=== PATIENT | female | born 1960 | race Caucasian/White ===

== ENCOUNTER → 2018-03-29 08:14 | Outpatient (CLI) | payer MEDICAID, SELFPAY ==
[2018-03-29 09:06] LABS: Absolute Lymphocyte Count 2.84 X10^3/ul (0.83-4.51); Absolute Neutrophil Count 2.2 X10^3/uL (2.0-7.7); Basophil# 0.03 X10^3/uL; Basophil% 0.5 % (0-1); Eosinophil# 0.11 X10^3/uL; Hematocrit 40.9 % (37-47); Hemoglobin 13.3 g/dl (12.0-15.0); Lymphocyte # 2.84 X10^3/ul (4.0); Lymphocyte % 50.5 % (19-41); Mean Corp Hgb Conc 32.5 g/gl (32-36); Mean Corpuscular Hgb 29.1 pg (27.0-32.0); Mean Corpuscular Volume 89.5 fL (81-99); Mean Platelet Vol. 10.2 fl (6.2-12.0); Monocyte# 0.45 X10^3/uL; Neutrophil # 2.17 X10^3/uL (2.7-7.7); Neutrophil % 38.6 % (47-70); Platelet Count 233 K/mm3 (150-450); RBC Distribution Width CV 12.8 % (11.6-14.6); RBC Distribution Width SD 41.6 fl (35.1-43.9); Red Blood Count 4.57 M/mm3 (4.2-5.4); White Blood Count 5.6 K/mm3 (4.4-11.0)
[2018-03-29 09:11] LABS: POSITIVE COUNT NO; POSITIVE DIFFERENTIAL NO; POSITIVE MORPHOLOGY NO
[2018-03-29 09:36] LABS: ALB/GLOB Ratio 0.8 RATIO (0.9-2.4); AST(SGOT) 42 U/L (15-37); Alanine Aminotransfer ALT/SGPT 79 U/L (13-56); Albumin, Serum 3.3 g/dL (3.2-5.0); Alkaline Phosphatase 101 U/L (45-117); Anion Gap 7 (5-15); BUN 18 mg/dL (7-18); BUN/Creat Ratio 21.9 RATIO (10-20); Calcium,Total 9.2 mg/dL (8.5-10.1); Chloride 95 mmol/L (98-107); Cholesterol 248 mg/dL (200); Creatinine, Serum 0.82 mg/dL (0.55-1.02); EST Glomerular Filtration Rate 76 mL/min (>60); Est Glom Filt Rate - Afr Amer 92 mL/min (>60); Glucose 73 mg/dL (74-106); High Density Lipoprotein 92 mg/dL; Potassium 4.5 mmol/L (3.5-5.1); Protein, Total 7.3 g/dL (6.4-8.2); Sodium Level 132 mmol/L (136-145); T4 Free Direct 0.71 ng/dL (0.76-1.46); Thyroid Stim Hormone (TSH) 6.52 uIU/mL (0.358-3.74); Triglycerides 150 mg/dL; Very Low Density Lipoprotein 30 mg/dL (5-40)
[2018-03-29 10:16] LABS: HIV - WCH Non-Reactive (Nonreactive)
[2018-03-31 07:07] LABS: HEPATITIS B SURFACE AG Negative (Negative); Hepatitis A AB, Total Negative (Negative); Hepatitis A IgM Antibody Negative (Negative); Hepatitis B Core AB IgM Negative (Negative); Hepatitis B Core Ab Total Positive (Negative); Hepatitis C Ab >11.0 s/co ratio (0.0-0.9)
[2018-04-03 11:52] LABS: Hep B Surface Antibodies Reactive (.)
== END ==
PROVIDERS: Referring Provider Nurse Practitioner Family; Visit Provider Nurse Practitioner Family
DX: E78.5 Hyperlipidemia, unspecified (principal); E03.9 Hypothyroidism, unspecified; B19.20 Unspecified viral hepatitis C without hepatic coma; F19.10 Other psychoactive substance abuse, uncomplicated
CPT/HCPCS: 36415; 80053; 80061; 84439; 84443; 85025; 86703; 86704; 86705; 86706; 86708; 86709; 86803; 87340

== ENCOUNTER 2018-06-07 19:21 | Emergency (ER) | payer MEDICAID, SELFPAY ==
[2018-06-07 19:22] VITALS: BP 132/98; PULSE 83; RESP 20; TEMP 37; O2SAT 99; BMI 21.2
--- NOTE | 2018-06-07 19:39 | ED.VISSUMM ---
- ER Visit Summary Date of Service: 06/07/18 Chief Complaint: Patient arrived by squad after respiratory arrest History of Present Illness: The patient is a 57 F who was at 180 counseling session for opiate use. She states she was not having a good day. She snorted fentanyl. She was found unresponsive. She awoke after 1 mg of Narcan. She denies fever, chills night sweats. She denies IV drug use. She denies ocular, visual auditory symptoms. She denies chest pain palpitations or rapid heartbeat. She denies shortness of breath or cough. She denies nausea vomiting or abdominal pain. She denies skin rash or lesions. Physical Examination: Vital signs noted and blood pressure is slightly elevated 132/98. Head is atraumatic normocephalic. Pupils are equal round reactive. Extraocular muscles are intact. TMs are pearly white with landmarks noted. Nares patent with no drainage. Posterior pharynx without erythema or exudate. Uvula is midline. There is no dysphonia or dysphasia. Trachea is midline. There is no stridor with auscultation of the neck. Heart is regular without murmur, gallop or rub. S1 and S2 are normal. Lungs are clear to auscultation with good movement of air bilaterally. Abdomen soft nontender. Neuro exam is nonfocal. No fresh needle jonas noted. Test Results: None Emergency Department Course and Treatment: Since patient received Narcan greater than 30 minutes ago and she is alert awake and oriented she is safe for discharge since the half-life of Narcan is 30 minutes and the half-life of fentanyl is less. One would expect her to have depressed level of conscious if overdose is more significant. Treatment Plan: Patient was observed and since half-life of Narcan is only 30 minutes and she still awake alert and oriented she is safe for discharge Disposition: Discharge to home Impression: Respiratory arrest secondary to fentanyl use This note was generated with [employer] dictation software. It may contain incorrect words, spelling, and punctuation that were not noted in review of the chart prior to signing ED Disposition - Plan for ED Patient: Disposition: Home or Assisted Living Chief Complaint: Overdose Instructions: ED Overdose Opiate Referrals: Ho Garg MD [Primary Care Provider] - As Needed
[2018-06-07 19:50] VITALS: BP 132/84; PULSE 77; RESP 18; O2SAT 98
== END 2018-06-07 20:00 | disposition home or self-care (01) ==
LOC: ED 19:47
PROVIDERS: Emergency Provider Emergency Medicine; Family Provider Internal Medicine; PCP Internal Medicine
DX: R09.2 Respiratory arrest (principal); F41.9 Anxiety disorder, unspecified; Z72.0 Tobacco use; F19.90 Other psychoactive substance use, unspecified, uncomplicated
CPT/HCPCS: 99284

== ENCOUNTER 2019-07-23 15:43 | Emergency (ER) | payer MEDICAID, SELFPAY ==
[2019-07-23 15:44] VITALS: BP 150/94; PULSE 80; RESP 18; TEMP 36.1; O2SAT 100; BMI 21.0
--- NOTE | 2019-07-23 16:01 | ED.VIS.FEGU ---
History of Present Illness Chief Complaint: Female C/O Informant: Patient - Vaginal Discharge Onset: Days Quality: - - brown Severity: Heavy Narrative: Patient is a 58-year-old female who denies any past medical history presenting with abnormal vaginal discharge for the past week. She states it is dripping out of her and brown-white. She denies any associated itch or odor. She denies any urinary symptoms. She has any vaginal bleeding. She denies any bowel symptoms. She denies any fever, nausea or vomiting. She notes about 3 weeks ago she had both anal and vaginal intercourse. She is concerned that her partner did not clean off his penis after the anal and before the vaginal intercourse. She does not have an FRUIT SPRAYER to follow-up with. Patient was also told at some point that eating raw noodles (uncooked Pasta) can cause tapeworms. Patient states she is always eaten raw noodles and is concerned that that might be what is going on. She denies any history of tapeworms. She denies any other complaints or concerns at this time. Past Medical History - Allergies and Home Meds Allergies/Adverse Reactions: Allergies No Known Allergies Allergy (Unverified 04/05/19 14:28) Primary Care Physician: Ho Garg MD [STAFF PHYSICIAN] - Prior records reviewed: Yes Past Medical History: None Surgical History: noncontributory Smoking Status: Current every day smoker Review of Systems General: Denies: Chills, Fever, Sweats Eyes: Denies: Visual changes - bilaterally, Diplopia ENT: Denies: Rhinorrhea, Sore throat Cardiovascular: Denies: Chest pain, Palpitations Respiratory: Denies: Dyspnea, Cough, Dyspnea on exertion Gastrointestinal: Denies: Abdominal pain, Nausea, Vomiting, Diarrhea, Melena, Hematochezia Genitourinary: Reports: - - Abnormal vaginal discharge. Denies: Dysuria, Hematuria, Frequency Musculoskeletal: Denies: Back pain, Extremity Pain Skin: Denies: Rash, Wounds Neurological: Denies: Headache, Weakness, Numbness Physical Exam Vital Signs/Narrative: Vital Signs Temp Pulse Resp BP Pulse Ox 07/23/19 15:44 96.9 F L 80 18 150/94 H 100 Inital Vital Signs reviewed: Yes General: Well nourished, Well developed Head: Normocephalic, Atraumatic Eyes: Perrl, EOMI ENT: Moist mucous membranes, No rhinorrhea Neck: Supple, Nontender Cardiovascular: Regular rate, Regular rhythm, No murmurs Respiratory: No distress, CTA bilaterally, Chest nontender Abdomen: Soft, Nontender, Nondistended, Normal bowel sounds : Speculum exam: Normal external genitalia, No vaginal lesions, No active bleeding, [place] vaginal discharge, Thin vaginal discharge Bimanual exam: No cervical motion tenderness, Nontender uterus, Nontender adnexa, bilat Back: Nontender, Normal Inspection. Negative for: CVA tenderness Extremities: Nontender, No edema Skin: Normal color, No rash Neurological: Alert, Oriented x3, Cranial nerves II-XII grossly intact, Normal Strength, Normal Sensation Psychological: Normal affect Diagnostic/Tx/Re-eval Laboratory Data 07/23/19 16:00 Urine Color Yellow Urine Clarity Sl. Cloudy Urine pH 6.0 Ur Specific [place] 1.010 Urine Protein Negative Urine Glucose (UA) Normal Urine Ketones Negative Urine Occult Blood 10 H Urine Nitrite Negative Urine Bilirubin Negative Urine Urobilinogen Normal Ur Leukocyte Esterase 500 H Urine RBC 5-10 SEEN Urine WBC 10-25 SEEN Ur Squamous Epith Cells 0-5 SEEN Urine Bacteria RARE Urine Mucus 0 SEEN Urine Trichomonas 0-5 SEEN - Medical Decision/Diagnostic Studies Evaluated for abnormal vaginal discharge. Physical exam is consistent with trichomonas. She does not have any cervical motion tenderness and I am not concerned for cervicitis, tubo-ovarian abscess or torsion. Patient does leave before her results come back. She will be called in a course of Flagyl to treat trichomonas. We did attempt to call her however her voicemail was not set up. Urinalysis does show trichomonas as well as 500 leukoesterase and rare bacteria. Leukoesterase is likely from the trichomonas. Urine culture is sent. Gonorrhea and Chlamydia results are still pending. Patient was well-appearing and is a good candidate for outpatient treatment. ED Disposition - Plan for ED Patient: Disposition: Home or Assisted Living Diagnosis: infection, trichomonal Prescriptions: Metronidazole [Flagyl] 500 mg PO BID #14 tab Transmission Status: Pending to [facility], [place], [facility] [place] - [id number] Referrals: Ho Garg MD [STAFF PHYSICIAN] -
[2019-07-23 16:29] LABS: Mucous, Urine 0 SEEN /hpf (<or=2+)
[2019-07-23 16:35] LABS: Color, Urine Yellow (Yellow); Glucose, Dipstick Normal (Normal); Ketone-Dipstick Negative (Negative); Leukocyte Esterase-Dipstick 500 /ul (Negative); Nitrite-Dipstick Negative (Negative); Occult Blood-Urine 10 /ul (Negative); Protein-Dipstick Negative (Negative); Urine Bilirubin Dipstick Negative (Negative); Urine Clarity Sl. Cloudy (Clear); Urine Urobilinogen Normal (Normal)
--- NOTE | 2019-07-23 16:41 | ED.RN ---
positive trich per call from md cathy notified.
[2019-07-23 16:54] LABS: Red Blood Cells-Urine 5-10 SEEN /hpf (0-5); Squamous Epithelial Cells - UA 0-5 SEEN /hpf (5-10); White Blood Cells 10-25 SEEN /hpf (0-5)
[2019-07-23 16:55] LABS: Bacteria RARE /hpf (None Seen); Trichomonas 0-5 SEEN /hpf (None Seen)
[2019-07-23 18:08] LABS: Chlamydia Trachomatis by PCR Negative (Negative); Neisserai gonorrhoeae by PCR Negative (Negative); Probe Check PASS; Sample Adequacy Control PASS; Specimen Processing Control PASS
--- NOTE | 2019-07-23 18:52 | ED.RN ---
Pt left before results returned. Physician aware. Unable to call results to pt. Did not answer and message option not set up.
== END 2019-07-23 17:30 | disposition home or self-care (01) ==
PROVIDERS: Emergency Provider Emergency Medicine
DX: A59.00 Urogenital trichomoniasis, unspecified (principal); F17.200 Nicotine dependence, unspecified, uncomplicated
CPT/HCPCS: 81001; 87086; 87210; 87491; 87591; 99281; 99282

== ENCOUNTER → 2020-01-30 10:51 | Outpatient (CLI) | payer MEDICAID, SELFPAY ==
[2020-01-30 10:42] VITALS: BMI 21.0
[2020-01-30 12:35] LABS: Absolute Lymphocyte Count 2.98 X10^3/uL (0.83-4.51); Absolute Neutrophil Count 2.4 X10^3/uL (2.0-7.7); Basophil# 0.08 X10^3/uL; Basophil% 1.3 % (0-1); Eosinophil# 0.16 X10^3/uL; Eosinophils% 2.6 % (0-5); Hematocrit 42.1 % (37-47); Lymphocyte # 2.98 X10^3/ul (4.0); Lymphocyte % 47.8 % (19-41); Mean Corp Hgb Conc 33.3 g/dL (32-36); Mean Corpuscular Hgb 30.1 pg (27.0-32.0); Mean Corpuscular Volume 90.5 fL (81-99); Monocyte% 9.6 % (0-10); NRBC Flagged by Analyzer 0 % (0-5); Neutrophil # 2.39 X10^3/uL (2.7-7.7); Neutrophil % 38.4 % (47-70); Platelet Count 270 K/mm3 (150-450); RBC Distribution Width CV 12.6 % (11.6-14.6); RBC Distribution Width SD 41.3 fl (35.1-43.9); Red Blood Count 4.65 M/mm3 (4.2-5.4); White Blood Count 6.2 K/mm3 (4.4-11.0)
[2020-01-30 12:53] LABS: ALB/GLOB Ratio 0.9 RATIO (0.9-2.4); AST(SGOT) 46 U/L (15-37); Alanine Aminotransfer ALT/SGPT 81 U/L (13-56); Albumin, Serum 3.7 g/dL (3.2-5.0); Alkaline Phosphatase 106 U/L (45-117); Anion Gap 2 (5-15); BUN 11 mg/dL (7-18); Calcium,Total 9.2 mg/dL (8.5-10.1); Chloride 101 mmol/L (98-107); Cholesterol 226 mg/dL (200); Creatinine, Serum 0.79 mg/dL (0.55-1.02); EST Glomerular Filtration Rate 79 mL/min (>60); Est Glom Filt Rate - Afr Amer 96 mL/min (>60); Globulin 3.9 g/dL (2.2-4.2); Glucose 88 mg/dL (74-106); High Density Lipoprotein 74 mg/dL; Potassium 4.3 mmol/L (3.5-5.1); Protein, Total 7.6 g/dL (6.4-8.2); Sodium Level 133 mmol/L (136-145); T4 Free Direct 0.73 ng/dL (0.76-1.46); Thyroid Stim Hormone (TSH) 7.97 uIU/mL (0.358-3.74); Triglycerides 188 mg/dL; Very Low Density Lipoprotein 38 mg/dL (5-40)
[2020-01-30 14:08] LABS: HIV - WCH Non-Reactive (Nonreactive)
[2020-01-30 14:14] LABS: Hepatitis C Antibody REACTIVE (Nonreactive)
[2020-02-01 03:06] LABS: HCV Quant. RNA PCR 1230000 IU/mL (.)
== END ==
PROVIDERS: PCP Internal Medicine; Referring Provider Nurse Practitioner Family; Visit Provider Nurse Practitioner Family
DX: E03.9 Hypothyroidism, unspecified (principal); E78.5 Hyperlipidemia, unspecified; B19.20 Unspecified viral hepatitis C without hepatic coma; F19.10 Other psychoactive substance abuse, uncomplicated
CPT/HCPCS: 36415; 80053; 80061; 84439; 84443; 85025; 86703; 86803; 87522

== ENCOUNTER → 2020-02-10 14:35 | Outpatient (CLI) | payer MEDICAID, SELFPAY ==
[2020-02-10 14:28] VITALS: BMI 21.9
--- NOTE | 2020-02-10 14:36 | RAD_ITS ---
STUDY: X-RAY - LUMBAR SPINE REASON FOR EXAM: Female, 59 years old. CHRONIC PAIN TECHNIQUE: 4 view(s) of the lumbar spine were obtained. COMPARISON: None FINDINGS: Normal lumbar lordosis. There is a dextroscoliosis of the lumbar spine. There is a normal alignment of the vertebrae. Normal vertebral bodies and endplates. Normal disc space heights. Moderate amount of fecal material is seen in the colon. RAD/L/S Spine Min 4 Views IMPRESSION: Dextroscoliosis. Electronically Signed: Jonah Castillo, at 15:52 EDT , Service support ,
--- NOTE | 2020-02-10 14:36 | RAD_ITS ---
STUDY: X-RAY - RIGHT KNEE REASON FOR EXAM: Female, 59 years old. CHRONIC PAIN TECHNIQUE: 4 view(s) of the knee. COMPARISON: None. FINDINGS: Normal visualized distal femur. Normal visualized proximal tibia and fibula. Normal proximal tibiofibular articulation. Normal medial femorotibial compartment. Normal lateral femorotibial compartment. Normal patellofemoral articulation. The soft tissue structures are unremarkable. RAD/Knee 4 or More Views IMPRESSION: Normal x-ray examination of the knee. Electronically Signed: Jonah Castillo, at 15:02 EDT , Service support ,
== END ==
PROVIDERS: PCP Internal Medicine; Referring Provider Orthopaedic Surgery; Visit Provider Orthopaedic Surgery
DX: R20.0 Anesthesia of skin (principal); M25.561 Pain in right knee
CPT/HCPCS: 72110; 73564

== ENCOUNTER → 2020-02-28 13:32 | Outpatient (CLI) | payer MEDICAID, SELFPAY ==
[2020-02-28 13:06] VITALS: BMI 21.0
[2020-02-28 14:36] LABS: T4 Free Direct 1.03 ng/dL (0.76-1.46)
== END ==
PROVIDERS: PCP Internal Medicine; Referring Provider Nurse Practitioner Family; Visit Provider Nurse Practitioner Family
DX: E03.9 Hypothyroidism, unspecified (principal)
CPT/HCPCS: 36415; 84439; 84443

== ENCOUNTER → 2020-03-11 09:50 | Outpatient (CLI) | payer MEDICAID, SELFPAY ==
[2020-02-28 13:06] VITALS: BMI 21.0
[2020-03-11 10:10] LABS: Absolute Lymphocyte Count 2.34 X10^3/uL (0.83-4.51); Absolute Neutrophil Count 2.8 X10^3/uL (2.0-7.7); Basophil# 0.05 X10^3/uL; Basophil% 0.9 % (0-1); Eosinophil# 0.14 X10^3/uL; Eosinophils% 2.4 % (0-5); Hematocrit 41.1 % (37-47); Hemoglobin 13.6 g/dL (12.0-15.0); Lymphocyte # 2.34 X10^3/ul (4.0); Lymphocyte % 39.8 % (19-41); Mean Corp Hgb Conc 33.1 g/dL (32-36); Mean Corpuscular Hgb 30.9 pg (27.0-32.0); Mean Corpuscular Volume 93.4 fL (81-99); Mean Platelet Vol. 10.3 fl (6.2-12.0); Monocyte# 0.54 X10^3/uL; Monocyte% 9.2 % (0-10); NRBC Flagged by Analyzer 0 % (0-5); Neutrophil # 2.78 X10^3/uL (2.7-7.7); Neutrophil % 47.2 % (47-70); Platelet Count 229 K/mm3 (150-450); RBC Distribution Width CV 11.8 % (11.6-14.6); RBC Distribution Width SD 40.1 fl (35.1-43.9); White Blood Count 5.9 K/mm3 (4.4-11.0)
[2020-03-11 10:25] LABS: International Normalized Ratio 0.9
[2020-03-11 10:52] LABS: ALB/GLOB Ratio 0.9 RATIO (0.9-2.4); AST(SGOT) 40 U/L (15-37); Alanine Aminotransfer ALT/SGPT 61 U/L (13-56); Albumin, Serum 3.6 g/dL (3.2-5.0); Alkaline Phosphatase 102 U/L (45-117); Anion Gap 4 (5-15); BUN 14 mg/dL (7-18); BUN/Creat Ratio 15.8 RATIO (10-20); Bilirubin, Direct 0.22 mg/dL (0.00-0.30); Calcium,Total 9.4 mg/dL (8.5-10.1); Chloride 105 mmol/L (98-107); Cholesterol 194 mg/dL (200); Creatinine, Serum 0.89 mg/dL (0.55-1.02); EST Glomerular Filtration Rate 69 mL/min (>60); Est Glom Filt Rate - Afr Amer 84 mL/min (>60); Globulin 3.9 g/dL (2.2-4.2); Glucose 64 mg/dL (74-106); Potassium 4.3 mmol/L (3.5-5.1); Protein, Total 7.5 g/dL (6.4-8.2); Sodium Level 137 mmol/L (136-145); Triglycerides 120 mg/dL
[2020-03-11 11:21] LABS: HIV - WCH Non-Reactive (Nonreactive); Hepatitis B Surface Antibody Non-Reactive; Hepatitis B Surface Antigen Non-Reactive (Nonreactive)
[2020-03-14 03:06] LABS: Comment 1a (.); HCV Quant. RNA PCR 668000 IU/mL (.); Hepatitis B Core Ab Total Positive (Negative)
[2020-03-14 11:03] LABS: HCV log 10 5.825 (.); Hepatitis A AB, Total Negative (Negative)
== END ==
PROVIDERS: PCP Nurse Practitioner Family; Referring Provider Internal Medicine Infectious Disease; Visit Provider Internal Medicine Infectious Disease
DX: B18.2 Chronic viral hepatitis C (principal)
CPT/HCPCS: 36415; 80053; 82248; 82465; 84478; 85025; 85610; 86703; 86704; 86706; 86708; 87340; 87522; 87902

== ENCOUNTER → 2020-05-28 14:14 | Outpatient (CLI) | payer MEDICAID, SELFPAY ==
[2020-04-28 14:43] VITALS: BMI 23.1
[2020-05-28 15:05] LABS: Hematocrit 42.1 % (37-47); Hemoglobin 14.4 g/dL (12.0-15.0); Mean Corp Hgb Conc 34.2 g/dL (32-36); Mean Corpuscular Hgb 31.4 pg (27.0-32.0); Mean Corpuscular Volume 91.9 fL (81-99); Mean Platelet Vol. 11.3 fl (6.2-12.0); Platelet Count 224 K/mm3 (150-450); RBC Distribution Width CV 11.7 % (11.6-14.6); RBC Distribution Width SD 39.2 fl (35.1-43.9); Red Blood Count 4.58 M/mm3 (4.2-5.4); White Blood Count 7.1 K/mm3 (4.4-11.0)
[2020-05-28 15:41] LABS: AST(SGOT) 12 U/L (15-37); Alanine Aminotransfer ALT/SGPT 20 U/L (13-56); Alkaline Phosphatase 110 U/L (45-117); Anion Gap 4 (5-15); BUN 12 mg/dL (7-18); Bilirubin, Direct 0.17 mg/dL (0.00-0.30); Calcium,Total 10.1 mg/dL (8.5-10.1); Chloride 104 mmol/L (98-107); Creatinine, Serum 0.92 mg/dL (0.55-1.02); EST Glomerular Filtration Rate 66 mL/min (>60); Est Glom Filt Rate - Afr Amer 80 mL/min (>60); Globulin 4.1 g/dL (2.2-4.2); Glucose 85 mg/dL (74-106); Potassium 4.2 mmol/L (3.5-5.1); Protein, Total 8.1 g/dL (6.4-8.2); Sodium Level 138 mmol/L (136-145)
[2020-05-31 14:44] LABS: HCV Quant. RNA PCR <15 IU/mL (.)
== END ==
PROVIDERS: PCP Nurse Practitioner Family; Visit Provider Internal Medicine Infectious Disease
DX: B19.20 Unspecified viral hepatitis C without hepatic coma (principal)
CPT/HCPCS: 36415; 80048; 80076; 85027; 87522

== ENCOUNTER → 2020-07-01 14:09 | Outpatient (CLI) | payer MEDICAID, SELFPAY ==
[2020-04-28 14:43] VITALS: BMI 23.1
[2020-07-01 15:37] LABS: Hematocrit 39.9 % (37-47); Hemoglobin 13.3 g/dL (12.0-15.0); Mean Corp Hgb Conc 33.3 g/dL (32-36); Mean Corpuscular Hgb 30.9 pg (27.0-32.0); Mean Corpuscular Volume 92.8 fL (81-99); Mean Platelet Vol. 11.5 fl (6.2-12.0); Platelet Count 223 K/mm3 (150-450); RBC Distribution Width CV 11.7 % (11.6-14.6); RBC Distribution Width SD 39.9 fl (35.1-43.9); White Blood Count 5.4 K/mm3 (4.4-11.0)
[2020-07-01 16:19] LABS: AST(SGOT) 16 U/L (15-37); Alanine Aminotransfer ALT/SGPT 21 U/L (13-56); Albumin, Serum 3.7 g/dL (3.2-5.0); Alkaline Phosphatase 96 U/L (45-117); Anion Gap 2 (5-15); BUN 11 mg/dL (7-18); BUN/Creat Ratio 12.6 RATIO (10-20); Bilirubin, Direct 0.11 mg/dL (0.00-0.30); Chloride 102 mmol/L (98-107); Creatinine, Serum 0.87 mg/dL (0.55-1.02); EST Glomerular Filtration Rate 70 mL/min (>60); Est Glom Filt Rate - Afr Amer 85 mL/min (>60); Glucose 102 mg/dL (74-106); Potassium 4.1 mmol/L (3.5-5.1); Protein, Total 7.7 g/dL (6.4-8.2); Sodium Level 134 mmol/L (136-145)
[2020-07-03 20:08] LABS: HCV Quant. RNA PCR HCV Not Detected IU/mL (.)
== END ==
PROVIDERS: PCP Nurse Practitioner Family; Referring Provider Internal Medicine Infectious Disease; Visit Provider Internal Medicine Infectious Disease
DX: B19.20 Unspecified viral hepatitis C without hepatic coma (principal)
CPT/HCPCS: 36415; 80048; 80076; 85027; 87522

== ENCOUNTER → 2020-09-11 14:37 | Outpatient (CLI) | payer MEDICAID, SELFPAY ==
[2020-09-11 10:54] VITALS: BMI 23.5
[2020-09-11 16:56] LABS: Thyroid Stim Hormone (TSH) 4.81 uIU/mL (0.358-3.74)
== END ==
PROVIDERS: PCP Internal Medicine; Referring Provider Nurse Practitioner Family; Visit Provider Nurse Practitioner Family
DX: E03.9 Hypothyroidism, unspecified (principal)
CPT/HCPCS: 36415; 84443

== ENCOUNTER → 2020-12-24 13:33 | Outpatient (CLI) | payer MEDICAID, SELFPAY ==
[2020-12-24 15:25] LABS: Thyroid Stim Hormone (TSH) 2.39 uIU/mL (0.358-3.74)
== END ==
PROVIDERS: PCP Internal Medicine; Referring Provider Nurse Practitioner Family; Visit Provider Nurse Practitioner Family
DX: E03.9 Hypothyroidism, unspecified (principal)
CPT/HCPCS: 36415; 84443

== ENCOUNTER → 2021-02-26 12:33 | Outpatient (CLI) | payer MEDICAID, SELFPAY | PROVIDERS: PCP Internal Medicine; Visit Provider Nurse Practitioner Family | DX: Z11.52 Encounter for screening for COVID-19 (principal) | CPT/HCPCS: 87635; U0005; U0003 ==

== ENCOUNTER → 2021-03-22 11:20 | Outpatient (CLI) | payer MEDICAID, SELFPAY ==
[2021-03-22 15:55] LABS: ALB/GLOB Ratio 0.9 RATIO (0.9-2.4); AST(SGOT) 14 U/L (15-37); Alanine Aminotransfer ALT/SGPT 19 U/L (13-56); Albumin, Serum 3.5 g/dL (3.2-5.0); Alkaline Phosphatase 74 U/L (45-117); Anion Gap 6 (5-15); BUN 16 mg/dL (7-18); BUN/Creat Ratio 18.1 RATIO (10-20); Calcium,Total 9.6 mg/dL (8.5-10.1); Chloride 103 mmol/L (98-107); Creatinine, Serum 0.88 mg/dL (0.55-1.02); EST Glomerular Filtration Rate 69 mL/min (>60); Est Glom Filt Rate - Afr Amer 84 mL/min (>60); Glucose 101 mg/dL (74-106); Potassium 4.7 mmol/L (3.5-5.1); Protein, Total 7.5 g/dL (6.4-8.2); Sodium Level 137 mmol/L (136-145); Thyroid Stim Hormone (TSH) 2.82 uIU/mL (0.358-3.74)
[2021-03-22 16:13] LABS: HIV - WCH Non-Reactive (Nonreactive); Hepatitis C Antibody Preliminary Reactive (Nonreactive)
[2021-03-25 00:07] LABS: HCV Quant. RNA PCR HCV Not Detected IU/mL (.)
== END ==
PROVIDERS: PCP Internal Medicine; Referring Provider Nurse Practitioner Family; Visit Provider Nurse Practitioner Family
DX: E03.9 Hypothyroidism, unspecified (principal); B18.2 Chronic viral hepatitis C; F19.10 Other psychoactive substance abuse, uncomplicated
CPT/HCPCS: 36415; 80053; 84443; 86703; 86803; 87522

== ENCOUNTER → 2021-04-08 09:46 | Outpatient (CLI) | payer MEDICAID, SELFPAY ==
--- NOTE | 2021-04-08 09:49 | US_ITS ---
STUDY: SUPERFICIAL ULTRASOUND - RIGHT POPLITEAL FOSSA. REASON FOR EXAM: Female, 60 years old. Mass, bakers cyst -- right knee TECHNIQUE: A superficial ultrasound was performed with real-time and static bearden-scale imaging. COMPARISON: None. FINDINGS: Sonographic examination was performed of the popliteal fossa. There is a 4.1 cm x 1.7 cm x 1 cm cystic structure in keeping with a Allen''s cyst. US/Ext Non Vasc Limited/Soft Tiss IMPRESSION: 4.1 cm x 1.7 cm x 1 cm Allen''s cyst in the right popliteal fossa. Electronically Signed: Jonah Castillo MD at 9:21 EDT , Service support ,
--- NOTE | 2021-04-08 10:20 | BI_ITS ---
MAMMOGRAPHY - BILATERAL SCREENING REASON FOR EXAM: Female, 60 years old. Routine annual screening examination. PERTINENT HISTORY: Non-contributory. TECHNIQUE: Digital bilateral breast john paul (3D mammographic acquisition) in the CC and MLO projections. 2-D mediolateral oblique (MLO) and craniocaudad (CC) views of both breasts were obtained. CAD: Full Field Digital Mammography with Computer Added Detection was performed. COMPARISON: Comparison is made with prior outside examination dated 03/21/2014. FINDINGS: Breast Composition: There are scattered areas of fibroglandular density. There are no dominant masses or suspicious calcifications. A tissue clip marker is seen along the anterior superior central portion of the right breast. Stable small benign-appearing bilateral axillary lymph nodes. No other significant abnormalities are identified. There has been no significant change since the prior study. BI/SCRN MAMM (CAD)W/JOHN PAUL BILAT IMPRESSION: Stable bilateral screening mammogram. Yearly follow-up mammogram recommended. (A) ASSESSMENT CATEGORY: BIRADS Category 2: Benign. A letter regarding these results will be sent to the patient by the facility within 30 days. Approximately 10% of breast cancers are not detected by mammography. A normal mammogram should not delay biopsy of a clinically suspicious abnormality. [id number] Electronically Signed: Jonah Castillo MD at 15:09 EDT , Service support ,
--- NOTE | 2021-04-08 11:01 | BD_ITS ---
STUDY: DUAL ENERGY X-RAY ABSORPTIOMETRY / DXA REASON FOR EXAM: Female, 60 years old. Screening. Patient is postmenopausal. TECHNIQUE: Bone Mineral Density (BMD) measurements of lumbar spine and bilateral hips were obtained. COMPARISON: None. FINDINGS: Lumbar Spine (L1-L4): g/cm2 (0.828) / T-score (-2.0) / Z-score (-0.5) Findings are suggestive of osteopenia with a moderate fracture risk. Left Femur Total: g/cm2 (0.858) / T-score (-0.7) / Z-score (0.3) Left Femoral Neck: g/cm2 (0.778) / T-score (-0.6) / Z-score (0.7) Right Femur Total: g/cm2 (0.845) / T-score (-0.8) / Z-score (0.2) Right Femoral Neck: g/cm2 (0.730) / T-score (-1.1) / Z-score (0 point) BD/Dexa Bone Density Study IMPRESSION: The patient is considered osteopenic as outlined below according to World Sean Organization (WHO) criteria with a moderate fracture risk. Reference Information: The T-score is the number of standard deviations above or below the standard which is normal for young adults at their peak bone mineral density. The World Health Organization (WHO) interprets the T-scores as follows: Above -1 Normal bone density Between -1 and -2.5 Osteopenia Equal to / or below -2.5 Osteoporosis As a practical clinical guideline, osteopenia may be graded as follows: Mild -1 through -1.5 Moderate -1.6 through -2.0 Severe -2.1 through -2.4 The Z-score is the number of standard deviations above or below age-matched controls. A Z-score of less than -1.5 would be considered abnormal. References: 1. NIH Osteoporosis and Related Bone Diseases www osteo.org 2. International Society for Clinical Densitometry www iscd.org 3. National Osteoporosis Foundation www nof.org Electronically Signed: Jonah Castillo MD at 8:30 EDT , Service support ,
== END ==
PROVIDERS: PCP Internal Medicine; Referring Provider Orthopaedic Surgery; Visit Provider Nurse Practitioner Family
DX: M71.21 Synovial cyst of popliteal space [Baker], right knee (principal); Z12.31 Encounter for screening mammogram for malignant neoplasm of breast
CPT/HCPCS: 76882; 77063; 77067; 77080

== ENCOUNTER → 2021-05-05 11:08 | Outpatient (CLI) | payer MEDICAID, SELFPAY ==
--- NOTE | 2021-05-05 11:09 | MRI_ITS ---
STUDY: MRI RIGHT KNEE WITH AND WITHOUT CONTRAST REASON FOR EXAM: Right knee pain, Allen''s cyst. TECHNIQUE: Standardized fat and water weighted pulse sequences were obtained in all 3 orthogonal planes before and after intravenous administration of 14 mL of Dotarem. COMPARISON: Radiographs 03/15/2021. FINDINGS: There is very mild intrasubstance myxoid degeneration of the posterior horn of the medial meniscus without discrete medial meniscal tear. Normal hyaline cartilage of the medial femorotibial compartment. Normal medial femoral condyle and tibial plateau. Normal medial collateral ligamentous complex (MCL). Normal distal semimembranosus, gracilis and semitendinosus tendons. Normal lateral meniscus. Normal hyaline cartilage of the lateral femorotibial compartment. Normal lateral femoral condyle and tibial plateau. Normal proximal tibiofibular articulation. Normal lateral collateral (fibular) ligament. Normal popliteus tendon. Normal biceps femoris tendon. Normal anterior cruciate ligament (ACL). Normal posterior cruciate ligament (PCL). Normal congruent patellofemoral articulation. There is intermediate grade chondromalacia of the medial patellar facet and low-grade chondromalacia lateral patellar facet (T2 axial images 11, 13) with subchondral cystic change. Normal medial and lateral patellar retinaculum. Normal visualized quadriceps tendon. Normal patellar tendon. Normal Hoffa''s fat pad. There is a minimal volume of fluid in the knee joint. There is a popliteal cyst measuring 4.2 cm in length (T2 sagittal images 14-18). There is no abnormal contrast enhancement. The otherwise visualized osseous structures are unremarkable. MRI/Lower Ext Joint Only W/WO Cont IMPRESSION: Chondromalacia patellae. Popliteal cyst. Electronically Signed: Moreno Caballero MD at 13:35 EST Tel , Service support ,
[2021-05-05 13:00] LABS: CREATININE FINGERSTICK 0.7 mg/dL (0.55-1.02); EGFR FINGERSTICK > 60.0000 mL/min (>60)
== END ==
PROVIDERS: PCP Nurse Practitioner Family; Referring Provider Orthopaedic Surgery; Visit Provider Orthopaedic Surgery
DX: M71.20 Synovial cyst of popliteal space [Baker], unspecified knee (principal); M79.89 Other specified soft tissue disorders
CPT/HCPCS: 73723; A9575

== ENCOUNTER → 2021-05-18 11:40 | Outpatient (CLI) | payer MEDICAID, SELFPAY ==
--- NOTE | 2021-05-18 12:20 | CT_ITS ---
STUDY: LOW DOSE CT LUNG CANCER SCREENING REASON FOR EXAM: Female, 60 years old. Lung cancer screening -- 36 pk yr hx;current smoker; asymptomatic RADIATION DOSAGE (If Supplied By Facility): CTDIvol = ( 3.02 ) mGy, DLP = ( 110.95 ) mGycm TECHNIQUE: No contrast was administered. Low dose technique was utilized (average mAS-38 and kVp 120). 1.25 mm axial source images with a slice interval of 1.25-mm were reconstructed in lung windows. 2.5 mm axial source images with a slice interval of 2.5-mm were reconstructed in lung windows. 5.0 mm axial source images with a slice interval of 5.0-mm were reconstructed in soft tissue windows. Nodule measured using lung windows on PACS and/or independent workstation with automated measurement of minimum and maximum diameter. Nodule measurement reported as average diameter rounded to the nearest whole number. Growth is defined as an increase ins size of greater than 1.5 mm. COMPARISON: None. NODULES: No suspicious nodules are seen Emphysema: Mild emphysematous changes in the upper lobes. Increased linear markings in the anterior lateral aspect of the lingular segment of the left upper lobe suggestive of linear scarring. Mild increased markings are also seen in the anterior aspect of the right middle lobe suggestive of scarring. Minimal increased markings along the dependent portions of both lower lobes suggestive of either atelectasis and/or linear scarring. Aorta: Mild atherosclerotic plaque of the aortic arch. Coronary arteries: Unremarkable Heart: Unremarkable Pulmonary artery: Unremarkable Mediastinal nodes: Small mediastinal lymph nodes. Other chest and abdominal findings: CT/Low Dose CT Lung Screening IMPRESSION: Lung-RADS category 2 - Continue annual screening with LDCT in 12 months. IMPORTANT NOTES FOR USE: ACR Lung-RADS Version 1.1 Assessment Categories Release Date: 2018 Category: Coded 0-4 bases on nodule(s) with highest degree of suspicion. Negative screen is defined as categories 1 and 2; a positive screen is defined as categories 3 and 4. Category 3 and 4A nodules that are unchanged on interval CT should be coded as category 2, and individuals returned to screening in 12 months. Category 4X: Category 3 or 4 nodules with additional imaging findings that increase the suspicion of lung cancer, such as spiculation, GGN that doubles in size in 1 year, enlarged lymph notes, etc. Category Modifiers: S (significant finding unrelated to lung cancer) Electronically Signed: Jonah Castillo MD at 13:32 EST , Service support ,
== END ==
PROVIDERS: PCP Nurse Practitioner Family; Referring Provider Nurse Practitioner Family; Visit Provider Nurse Practitioner Family
DX: Z12.2 Encounter for screening for malignant neoplasm of respiratory organs (principal); F17.200 Nicotine dependence, unspecified, uncomplicated
CPT/HCPCS: 71271

== ENCOUNTER 2021-09-09 12:21 | Observation (INO) | payer MEDICAID, SELFPAY ==
[2021-09-09] VITALS (12 sets, daily range): BP systolic 84–110; BP diastolic 54–77; PULSE 56–79; RESP 16–18; TEMP 36.6–37.2; O2SAT 94–100; BMI 24.5; BMI 25.2
--- NOTE | 2021-09-09 | APP_PTH ---
PATIENT: CLAUDIO DENTON LOC: MS3 U#:[id number] AGE/SX: 60/F ROOM: [facility] [place] RE09/09/[address]: Dr. Rick Ramirez MD : 1960 BED: 1 DIS: 09/10/2021 SPEC #: [id number] RECD: 09/10/21 06:46 STATUS: LUCÍA CYR #: [id number] AURE: 09/09/21 00:[address]: Rick Ramirez DEPT: SURGICAL PATHOLOGY RECD BY: Damien Ash ENTERED: 09/10/21 08:53 SP TYPE: APPENDIX OTHR DR: Marc Wheeler, DORA-Mariza Tissues: Appendix, NOS Procedures: Surgery Specimen Level III HEADER OPERATION: Laparoscopic appendectomy PRE-OP DIAGNOSIS: Acute appendicitis TISSUE SUBMITTED: Appendix MICROSCOPIC DIAGNOSIS Appendix, appendectomy: Acute appendicitis and periappendicitis. NANNETTE:cornel 09/13/2021 MICROSCOPIC DESCRIPTION Slides are reviewed. GROSS DESCRIPTION Received in fixative is one container labeled with the patient's name and designated appendix. The specimen consists of an appendix with attached periappendiceal adipose tissue. The appendix measures 6.5 cm in length and 0.8 cm in diameter. The attached periappendiceal adipose tissue measures up to 2.5 cm in width. No obvious perforation is identified. The serosal surface shows beadren, purulent exudate. No fecalith is identified. Sections reveal congested mucosa. Epic Cupid Analyst sections are submitted in one cassette. / NANNETTE:cornel 09/10/2021 TC:2 CPT: 73631
[2021-09-09] MEDS: Ondansetron 4 MG/2 ML Vial IV (13:43)
[2021-09-09] MEDS: 0.9% Normal Saline 1,000 ML 1000 ML IV (13:45)
[2021-09-09 13:48] LABS: Absolute Lymphocyte Count 1.02 X10^3/uL (0.83-4.51); Absolute Neutrophil Count 9.6 X10^3/uL (2.0-7.7); Basophil# 0.04 X10^3/uL; Basophil% 0.3 % (0-1); Eosinophil# 0.03 X10^3/uL; Eosinophils% 0.3 % (0-5); Hematocrit 39.6 % (37-47); Hemoglobin 13.2 g/dL (12.0-15.0); Lymphocyte # 1.02 X10^3/ul (0.83-4.51); Lymphocyte % 8.9 % (19-41); Mean Corp Hgb Conc 33.3 g/dL (32-36); Mean Corpuscular Hgb 30.8 pg (27.0-32.0); Mean Corpuscular Volume 92.3 fL (81-99); Mean Platelet Vol. 10.8 fl (6.2-12.0); Monocyte# 0.82 X10^3/uL; Monocyte% 7.1 % (0-10); NRBC Flagged by Analyzer 0 % (0-5); Neutrophil # 9.55 X10^3/uL (2.7-7.7); Neutrophil % 83.1 % (47-70); Platelet Count 187 K/mm3 (150-450); Red Blood Count 4.29 M/mm3 (4.2-5.4); White Blood Count 11.5 K/mm3 (4.4-11.0)
[2021-09-09 14:04] LABS: AST(SGOT) 15 U/L (15-37); Alanine Aminotransfer ALT/SGPT 18 U/L (13-56); Albumin, Serum 3.6 g/dL (3.2-5.0); Alkaline Phosphatase 90 U/L (45-117); Anion Gap 2 (5-15); BUN 12 mg/dL (7-18); BUN/Creat Ratio 13.6 RATIO (10-20); Calcium,Total 9.6 mg/dL (8.5-10.1); Chloride 105 mmol/L (98-107); Creatinine, Serum 0.88 mg/dL (0.55-1.02); EST Glomerular Filtration Rate 69 mL/min (>60); Est Glom Filt Rate - Afr Amer 84 mL/min (>60); Estimated Creatinine Clearance 63.64 ml/min; Globulin 3.7 g/dL (2.2-4.2); Glucose 111 mg/dL (74-106); Potassium 4.1 mmol/L (3.5-5.1); Protein, Total 7.3 g/dL (6.4-8.2); Sodium Level 135 mmol/L (136-145)
--- NOTE | 2021-09-09 14:21 | CT_ITS ---
STUDY: CT ABDOMEN AND PELVIS WITH CONTRAST REASON FOR EXAM: Female, 60 years old. RLQ Pain. Nausea. RADIATION DOSAGE (If Supplied By Facility): CTDIvol = ( 8.33 ) mGy, DLP = ( 351.37 ) mGycm TECHNIQUE: Transaxial images were obtained from the dome of the diaphragm to the symphysis pubis without oral contrast. IV 100mL Isovue-300 was administered. Sagittal and coronal images were reconstructed. Individualized dose optimization techniques were used for this CT. COMPARISON: None. FINDINGS: Mild degree of increased markings at the lung bases suggestive of a bibasilar atelectasis. The visualized portions of the heart are within normal limits. Multiple hepatic cysts are seen. The largest cyst measures 2.6 cm x 2.3 cm. This is in the dome of the right lobe of the liver. Normal gallbladder and extrahepatic biliary system. Normal spleen. Normal pancreas. Normal bilateral adrenal glands. Normal right kidney. Normal left kidney. Normal visualized stomach. Normal small intestine. A moderate amount of fecal material is seen in the right hemicolon. Sigmoid diverticulosis. There is a tubular, thick-walled appendix (>7mm), consistent with acute appendicitis. Normal abdominal aorta. Normal inferior vena cava. Normal retroperitoneum. Normal urinary bladder. Normal abdominal wall. Normal osseous structures. CT/Abdomen/Pelvis W IV Cont ONLY IMPRESSION: Findings in comparison with the noncomplicated acute appendicitis. Hepatic cysts. Sigmoid diverticulosis. Mild degree of increased markings at the lung bases suggest bibasilar atelectasis. Electronically Signed: Jonah Castillo MD at 14:59 EDT ,
[2021-09-09 14:42] LABS: Bacteria 0 SEEN /hpf (None Seen); Mucous, Urine 0 SEEN /hpf (<or=2+); White Blood Cells 0 SEEN /hpf (0-5)
[2021-09-09 14:47] LABS: Color, Urine Yellow (Yellow); Glucose, Dipstick Normal (Normal); Ketone-Dipstick Negative (Negative); Leukocyte Esterase-Dipstick 25 /ul (Negative); Nitrite-Dipstick Negative (Negative); Occult Blood-Urine 10 /ul (Negative); Protein-Dipstick Negative (Negative); Urine Bilirubin Dipstick Negative (Negative); Urine Clarity Clear (Clear); Urine Urobilinogen Normal (Normal)
[2021-09-09 14:57] LABS: Red Blood Cells-Urine 0-5 SEEN /hpf (0-5); Squamous Epithelial Cells - UA 0-5 SEEN /hpf (5-10)
--- NOTE | 2021-09-09 15:12 | EDS_ITS ---
HPI HPI - GI History of Present Illness Chief Complaint: Abd Pain Narrative Narrative: 60-year-old female presenting with right lower quadrant abdominal pain. She stated started hurting about 5 AM this morning. She has nausea without vomiting. She denies urinary complaints. She has no constipation or diarrhea. She is not had a fever. No trauma to the abdomen. [facility] Medical History Alcohol abuse Anxiety Arthritis Depression Drug abuse Encounter for screening for COVID-19 Encounter for screening for malignant neoplasm of lung in current smoker with 30 pack year history or greater Hepatitis C Home Medications fluticasone propionate 50 mcg/actuation nasal spray,suspension 2 spray INTRANASAL DAILY #15.8 g 06/23/20 [Rx Last Taken Unknown] levothyroxine 50 mcg tablet 50 mcg PO DAILY #30 tablet 11/19/20 [Rx Last Taken Unknown] escitalopram oxalate 10 mg tablet 10 mg PO DAILY #30 tab 05/25/21 [Rx Last Taken Unknown] Allergy/AdvReac Type Severity Reaction Status Date / Time No Known Allergies Allergy Verified 09/09/21 12:22 Family History Father Myocardial infarction Heart disease High cholesterol Alcoholism Arthritis Mother Depression Grandfather Alcoholism Heart disease Brother Alcoholism Drug abuse Heart disease Surgical History History of tubal ligation Social History Smoking Status: Current every day smoker tobacco type: cigarettes alcohol intake: former substance use type: former substance user what type of physical activity do you participate in: none ROS ROS ED Constitutional Constitutional ED: Denies chills or fever(s) ENT ENT ED: Denies rhinorrhea or sore throat Cardiovascular Cardiovascular: Denies chest pain or palpitations Respiratory/Chest Respiratory/Chest: Denies cough or dyspnea Gastrointestinal Gastrointestinal: Reports abdominal pain and nausea; Denies diarrhea or vomiting Genitourinary Genitourinary ED: Denies dysuria or hematuria Musculoskeletal Musculoskeletal: Denies myalgias Integumentary Denies rash Neurologic Neurologic: Denies headache(s) or weakness EXAM Physical Exam Const Vital Signs: 09/09/21 12:22 09/09/21 13:47 Temperature 97.8 F Temperature Source Temporal Pulse Rate 63 56 L Respiratory Rate 16 Blood Pressure 84/56 L 100/66 Blood Pressure Mean 65 77 Pulse Ox 98 Oxygen Delivery Method Room Air Positive well nourished General Appearance ED: NAD; Negative for pallor HEENT Reports moist mucous membranes normocephalic Eyes PERRL and EOMs intact bilaterally Resp normal respiratory effort and clear to auscultation bilaterally Cardio regular rate and regular rhythm GI Palpation: tender McBurney's point Back/Spine no CVA tenderness Neuro Sensorium / Orientation: alert, oriented to person, oriented to place and orien ying to time Psych mental status grossly normal Skin General Skin Exam: Negative for jaundice or pallor MDM MDM MDM Narrative Medical decision making narrative: Patient presenting with right lower quadrant pain. Patient given morphine and Zofran for pain. Is given IV fluids as her first blood pressure appear to be low at 84/56. I do believe this was erroneous blood pressure as her blood pressure rechecked was 100/66. Patient nontoxic- appearing. Lab work obtained and shows a leukocytosis of 11.5 with a slight left shift. Liver function tests are normal. Electrolytes and renal function are normal. Urinalysis negative for infection. CT of the abdomen pelvis shows acute uncomplicated appendicitis. Patient discussed with who will take the patient to the OR. Patient given Zosyn and another liter of IV fluids. He is kept n.p.o. patient transferred to PACU. Impression: 1. Acute appendicitis Lab Data Attestation: I reviewed the patient's lab results. Labs: Laboratory Results - last 24 hr 09/09/21 09/09/21 09/09/21 13:40 13:40 14:30 WBC 11.5 H RBC 4.29 Hgb 13.2 Hct 39.6 MCV 92.3 MCH 30.8 MCHC 33.3 RDW Std Deviation 40.0 RDW Coeff of Neeta 12.0 Plt Count 187 MPV 10.8 Immature Gran % (Auto) 0.300 Neut % (Auto) 83.1 H Lymph % (Auto) 8.9 L [place] % (Auto) 7.1 Eos % (Auto) 0.3 Baso % (Auto) 0.3 Absolute Neuts (auto) 9.6 H Absolute Lymphs (auto) 1.02 Nucleated RBC % 0 Sodium 135 L Potassium 4.1 Chloride 105 Carbon Dioxide 28.0 Anion Gap 2 L BUN 12 Creatinine 0.88 Estim Creat Clear Calc 63.64 Est GFR (MDRD) Af Amer 84 Est GFR (MDRD) Non-Af 69 BUN/Creatinine Ratio 13.6 Glucose 111 H Calcium 9.6 Total Bilirubin 1.00 AST 15 ALT 18 Alkaline Phosphatase 90 Total Protein 7.3 Albumin 3.6 Globulin 3.7 Albumin/Globulin Ratio 1.0 Urine Color Yellow Urine Clarity Clear Urine pH 7.0 Ur Specific [place] 1.010 Urine Protein Negative Urine Glucose (UA) Normal Urine Ketones Negative Urine Occult Blood 10 H Urine Nitrite Negative Urine Bilirubin Negative Urine Urobilinogen Normal Ur Leukocyte Esterase 25 H Urine RBC 0-5 SEEN Urine WBC 0 SEEN Ur Squamous Epith Cells 0-5 SEEN Urine Bacteria 0 SEEN Urine Mucus 0 SEEN Radiography Diagnostic Testing: Clinical Impression(s) from Imaging Studies Abdomen/Pelvis CT 09/09/21 14:21 IMPRESSION: Findings in comparison with the noncomplicated acute appendicitis. Hepatic cysts. Sigmoid diverticulosis. Mild degree of increased markings at the lung bases suggest bibasilar atelectasis. Electronically Signed: Jonah Castillo MD at 14:59 EDT , Discharge Plan Disposition Disposition: Acute Care [facility] Discharge Date/Time: 09/09/21 15:35
--- NOTE | 2021-09-09 15:13 | EKG12_ITS ---
Test Reason : PRE OP Blood Pressure : / mmHG Vent. Rate : 057 BPM Atrial Rate : 057 BPM P-R Int : 154 ms QRS Dur : 064 ms QT Int : 456 ms P-R-T Axes : 037 034 224 degrees QTc Int : 443 ms Sinus bradycardia Nonspecific ST and T wave abnormality Abnormal ECG No previous ECGs available Confirmed by HOMER ARAYA, CANDICE ([id number]), assignment desk editor RERE DELEON ([id number]) on 09/14/2021 11:16:07 AM Referred By: Rick Ramirez Confirmed By:CANDICE CORONEL MD
[2021-09-09] MEDS: 0.9% Normal Saline 1,000 ML 999 ML IV (15:15)
[2021-09-09] MEDS: Morphine 4 MG/ML Syringe IV (15:23)
[2021-09-09] MEDS: Piperacil/Tazobactam 3.375 GM Q12 PREMIX IV (15:30)
--- NOTE | 2021-09-09 15:45 | PCM.HP.STD ---
HPI - General HPI Narrative CLAUDIO DENTON, is a 60 F who presents with abdominal pain that started this morning. Patient reports nausea but no vomiting. Patient does not report any fever but she does feel like she is having chills. She reports some constipation. Abdominal pain is in the right lower quadrant and does not radiate. [facility] Medical History Alcohol abuse Anxiety Arthritis Depression Drug abuse Encounter for screening for COVID-19 Encounter for screening for malignant neoplasm of lung in current smoker with 30 pack year history or greater Hepatitis C Home Medications fluticasone propionate 50 mcg/actuation nasal spray,suspension 2 spray INTRANASAL DAILY #15.8 g 06/23/20 [Rx Last Taken Unknown] levothyroxine 50 mcg tablet 50 mcg PO DAILY #30 tablet 11/19/20 [Rx Last Taken Unknown] escitalopram oxalate 10 mg tablet 10 mg PO DAILY #30 tab 05/25/21 [Rx Last Taken Unknown] Allergy/AdvReac Type Severity Reaction Status Date / Time No Known Allergies Allergy Verified 09/09/21 12:22 Family History Father Myocardial infarction Heart disease High cholesterol Alcoholism Arthritis Mother Depression Grandfather Alcoholism Heart disease Brother Alcoholism Drug abuse Heart disease Surgical History History of tubal ligation Social History Smoking Status: Current every day smoker tobacco type: cigarettes alcohol intake: former substance use type: former substance user what type of physical activity do you participate in: none ROS Constitutional Constitutional: Denies anorexia or fatigue Eyes Eyes: Denies change in vision ENT HEENT: Denies dysphagia Cardiovascular Cardiovascular: Denies chest pain Respiratory/Chest Respiratory/Chest: Denies cough Gastrointestinal Gastrointestinal: Reports abdominal pain and nausea; Denies diarrhea, dysphagia, hematemesis or vomiting Genitourinary Genitourinary: Denies dysuria Musculoskeletal Musculoskeletal: Denies difficulty walking Integumentary Integumentary: Denies jaundice Neurologic Neurologic: Denies abnormal gait Psychiatric Psychiatric: Denies anxiety Vital Signs Vital Signs Vital Signs: 09/09/21 12:22 09/09/21 13:47 Temperature 97.8 F Temperature Source Temporal Pulse Rate 63 56 L Respiratory Rate 16 Blood Pressure 84/56 L 100/66 Blood Pressure Mean 65 77 Pulse Ox 98 Oxygen Delivery Method Room Air Weight Weight: 152 lb Body Mass Index (BMI) 24.5 Physical Exam Const alert and oriented x3 Resp normal respiratory effort and normal air movement Cardio regular rate and regular rhythm GI soft to palpation and non-distended Palpation: tender RLQ Results Lab / Micro Data Result Diagrams: 09/09/21 13:40 09/09/21 13:40 Labs: Laboratory Results - last 24 hr 09/09/21 13:40: WBC 11.5 H, RBC 4.29, Hgb 13.2, Hct 39.6, MCV 92.3, MCH 30.8, MCHC 33.3, RDW Std Deviation 40.0, RDW Coeff of Neeta 12.0, Plt Count 187, MPV 10.8, Immature Gran % (Auto) 0.300, Neut % (Auto) 83.1 H, Lymph % (Auto) 8.9 L, [place] % (Auto) 7.1, Eos % (Auto) 0.3, Baso % (Auto) 0.3, Absolute Neuts (auto) 9.6 H, Absolute Lymphs (auto) 1.02, Nucleated RBC % 0 09/09/21 13:40: Sodium 135 L, Potassium 4.1, Chloride 105, Carbon Dioxide 28.0, Anion Gap 2 L, BUN 12, Creatinine 0.88, Estim Creat Clear Calc 63.64, Est GFR (MDRD) Af Amer 84, Est GFR (MDRD) Non-Af 69, BUN/Creatinine Ratio 13.6, Glucose 111 H, Calcium 9.6, Total Bilirubin 1.00, AST 15, ALT 18, Alkaline Phosphatase 90, Total Protein 7.3, Albumin 3.6, Globulin 3.7, Albumin/Globulin Ratio 1.0 09/09/21 14:30: Urine Color Yellow, Urine Clarity Clear, Urine pH 7.0, Ur Specific [place] 1.010, Urine Protein Negative, Urine Glucose (UA) Normal, Urine Ketones Negative, Urine Occult Blood 10 H, Urine Nitrite Negative, Urine Bilirubin Negative, Urine Urobilinogen Normal, Ur Leukocyte Esterase 25 H, Urine RBC 0-5 SEEN, Urine WBC 0 SEEN, Ur Squamous Epith Cells 0-5 SEEN, Urine Bacteria 0 SEEN, Urine Mucus 0 SEEN Radiology Impression Abdomen/Pelvis CT 09/09/21 14:21 IMPRESSION: Findings in comparison with the noncomplicated acute appendicitis. Hepatic cysts. Sigmoid diverticulosis. Mild degree of increased markings at the lung bases suggest bibasilar atelectasis. Electronically Signed: Jonah Castillo MD at 14:59 EDT , Assessment & Plan Assessment/Plan (1) Acute appendicitis: QUALIFIERS: Acute appendicitis type: unspecified acute appendicitis type Qualified Code(s): K35.80 - Unspecified acute appendicitis PLAN: Patient has pain that started this morning as well as an elevated white count. The patient has CT scan which shows acute appendicitis. I discussed laparoscopic appendectomy with the patient in detail. I discussed the risks include but not limited to bleeding, infection, injury to underlying organs such as the bowel or bladder or ureter. Patient understands the risks and is willing to proceed with laparoscopic appendectomy. Rick Ramirez MD Pager: [facility] [address] [place] [address], [address] [place] [address] Office:
[2021-09-09] MEDS: Bupivacaine Mpf 0.5% 30 ML VIAL (16:36)
[2021-09-09] MEDS: Sugammadex Sodium 200 MG/2 ML VIAL IV (16:45)
--- NOTE | 2021-09-09 17:04 | OP.PCM_ITS ---
Problems Associated Problem List Diagnoses (1) Acute appendicitis: Report of Operation Date of Procedure: 09/09/21 Pre-Operative Diagnosis: Acute appendicitis Post-Operative Diagnosis: Same Surgery/Procedure Performed:: Laparoscopic appendectomy Specimen's removed: Appendix Description of Procedure: The patient was brought into the operating room and general anesthesia was induced. The left arm was tucked and the abdomen was prepped and draped in usual sterile fashion. A small midline incision was made superior to the umbilicus and deepened to the level of the fascia. The fascia was elevated and incised. The peritoneum was also elevated and incised. A finger sweep was performed and a balloon trocar was placed into the abdomen and inflated. The abdomen was insufflated to 15 mmHg and the camera was inserted and the abdomen was inspected for any injuries upon entering the abdomen. There were none. The patient was placed in Trendelenburg position and a 5 mm ports placed in the left lower quadrant and suprapubic areas under direct visualization. Next using atraumatic bowel graspers the appendix was identified. The appendix was grasped and elevated and Enseal was used to take down the mesoappendix. A stapler was used to come across the base of the appendix. The appendix was then placed in Endo Catch bag and removed through the umbilical incision. The staple line was inspected and found to have a small bleeder. This was clipped with titanium clips. After this it appeared to be hemostatic and intact. The 2 5 mm ports are removed under direct visualization. The balloon trocar was deflated and removed and all the air was removed from the abdomen. The umbilical incision fascia was closed with an 0 Vicryl [id number] suture. The incisions were then irrigated with saline and dried. Local anesthetic was injected into the incision sites. The skin incisions were then closed with interrupted 4-0 Monocryl suture and Steri- Strips. Bandages were applied and the patient was awoken and taken to PACU in stable condition. Patient tolerated the procedure well. Admit VTE Documentation VTE Mechan Device Prophylaxis: SCD's
[2021-09-09] MEDS: Ipratropium/Albuterol Sulfate 3 ML AMPUL.NEB INHALATION (17:09)
[2021-09-09] MEDS: 0.9% Normal Saline 1,000 ML 60 ML IV ×2 (17:16→20:33)
--- NOTE | 2021-09-09 18:13 | CPS ---
RN did aersol in PACU
[2021-09-09] MEDS: Acetaminophen 325 MG Tablet 650 MG PO (20:31)
[2021-09-10 04:26] VITALS: BP 92/55; PULSE 61; RESP 16; TEMP 36.8; O2SAT 95
[2021-09-10] MEDS: Levothyroxine 50 MCG Tablet PO (04:39)
[2021-09-10] MEDS: Acetaminophen 325 MG Tablet 650 MG PO ×2 (04:39→10:05)
--- NOTE | 2021-09-10 07:49 | DCINST_ITS ---
Discharge Instructions Procedure Appendectomy Diet Discharge Diet: Light diet - advance as tolerated Activity Discharge Activity: May Not Drive (for 2-3 days or while taking narcotic pain medications.) May shower in (days): 1 Lifting Restrictions: 20 lbs for 2 weeks Additional Activity Instructions:: If constipated please drink a bottle of magnesium citrate to assist. Dressing / Incision Call your doctor if your incision/area has: Continuous Slow Oozing, Sudden Increased Bleeding, Increased Pain/ Swelling, Increased Redness and Foul Smelling Discharge Call your doctor if you observe: Fever of 101 or Higher Suture Line Care: Avoid Pulling/Pushing and Avoid Pinching/Bending Remove Dressing in: 2 days Cleanse incision/area with: Soap & Water Additional Dressing/Incision Instructions:: Keep dressing clean and dry. Change or remove dressing in 2 days. Leave steri strips for 1 week. May protect with a gauze bandaid. Follow Up Care Please Follow Up With: Rick Ramirez MD When: Please call to schedule 2 week follow up appointment. [phone] Test Results: Test results from this visit will be discussed in further detail at your follow-up appointment, if applicable. Discharge Plan Admission Admit Date/Time: 09/09/21 15:48 Attending Provider: Rick Ramirez Primary Care Provider: Marc Wheeler NP Discharge Orders/Prescriptions Prescriptions: New acetaminophen [Tylenol] 325 mg Tablet 650 mg PO Q4H PRN PRN (Reason: PAIN 1-10/FEVER) Qty: 0 RF: 0 Continued levothyroxine 50 mcg tablet 50 mcg PO DAILY Qty: 30 RF: 11 fluticasone propionate [Flonase Allergy Relief] 50 mcg/actuation spray,suspension 2 spray INTRANASAL DAILY Qty: 15.8 RF: 1 escitalopram oxalate 10 mg tablet 10 mg PO DAILY Qty: 30 RF: 4 Referrals / Follow Up: Marc Wheeler NP, [facility] [Primary Care Provider] - Disposition Disposition (needs filled in before D/C Order can be placed): Home, Self Care
[2021-09-10 09:29] VITALS: BP 98/53; PULSE 72; RESP 18; TEMP 37.1; O2SAT 97
[2021-09-10] MEDS: Escitalopram Oxalate 10 MG Tablet PO (09:31)
[2021-09-10] MEDS: Fluticasone 0.05% 1 SPRAY NASAL.SRY 2 SPRAY NASAL (09:31)
== END 2021-09-10 11:00 | disposition home or self-care (01) ==
LOC: ED 13:34 → SDC 15:15 → AC 15:17 → SDC 17:36 → MS3 17:36
PROVIDERS: Admitting Provider Surgery; Emergency Provider Student in an Organized Health Care Education/Training Program; PCP Nurse Practitioner Family; Referring Provider Surgery; Visit Provider Surgery
PROC: 0DTJ4ZZ Resection of Appendix, Percutaneous Endoscopic Approach (ICD-10-PCS; CPT 44970; principal; 2021-09-09 15:40)
DX: K35.80 Unspecified acute appendicitis (principal); F17.210 Nicotine dependence, cigarettes, uncomplicated; M19.90 Unspecified osteoarthritis, unspecified site; F41.9 Anxiety disorder, unspecified; F32.A Depression, unspecified; Z79.899 Other long term (current) drug therapy; E03.9 Hypothyroidism, unspecified; E78.5 Hyperlipidemia, unspecified
CPT/HCPCS: 44970; 00840; C1760; 74177; 80053; 81001; 85025; 87426; 88304; 93005; 94640; 96361; 96374; 96375; 99218; 99251; 99406; J7030; Q9967; A4216; G0378; G0463; J2405

== ENCOUNTER → 2022-04-29 | Outpatient (CLI) | payer MEDICAID, SELFPAY ==
[2022-04-29 11:42] LABS: Bacteria 0 SEEN /hpf (None Seen); Mucous, Urine 0 SEEN /hpf (<or=2+); Red Blood Cells-Urine 0 SEEN /hpf (0-5); Squamous Epithelial Cells - UA 0 SEEN /hpf (5-10); White Blood Cells 0 SEEN /hpf (0-5)
[2022-04-29 15:07] LABS: Color, Urine Yellow (Yellow); Glucose, Dipstick Normal (Normal); Ketone-Dipstick Negative (Negative); Leukocyte Esterase-Dipstick 25 /ul (Negative); Nitrite-Dipstick Negative (Negative); Occult Blood-Urine 50 /ul (Negative); Protein-Dipstick Negative (Negative); Urine Bilirubin Dipstick Negative (Negative); Urine Clarity Clear (Clear); Urine Urobilinogen Normal (Normal)
[2022-04-29 15:11] LABS: Absolute Lymphocyte Count 2.03 X10^3/uL (0.83-4.51); Absolute Neutrophil Count 2.1 X10^3/uL (2.0-7.7); Basophil# 0.05 X10^3/uL; Eosinophil# 0.12 X10^3/uL; Eosinophils% 2.5 % (0-5); Hematocrit 39.6 % (37-47); Hemoglobin 13.1 g/dL (12.0-15.0); Lymphocyte # 2.03 X10^3/ul (0.83-4.51); Lymphocyte % 41.9 % (19-41); Mean Corp Hgb Conc 33.1 g/dL (32-36); Mean Corpuscular Volume 93.6 fL (81-99); Mean Platelet Vol. 11.4 fl (6.2-12.0); Monocyte# 0.49 X10^3/uL; Monocyte% 10.1 % (0-10); NRBC Flagged by Analyzer 0 % (0-5); Neutrophil # 2.14 X10^3/uL (2.7-7.7); Neutrophil % 44.3 % (47-70); Platelet Count 238 K/mm3 (150-450); RBC Distribution Width CV 11.7 % (11.6-14.6); RBC Distribution Width SD 39.7 fl (35.1-43.9); Red Blood Count 4.23 M/mm3 (4.2-5.4); White Blood Count 4.8 K/mm3 (4.4-11.0)
[2022-04-29 15:41] LABS: ALB/GLOB Ratio 0.9 RATIO (0.9-2.4); AST(SGOT) 11 U/L (15-37); Alanine Aminotransfer ALT/SGPT 22 U/L (13-56); Albumin, Serum 3.5 g/dL (3.2-5.0); Alkaline Phosphatase 93 U/L (45-117); Anion Gap 5 (5-15); BUN 11 mg/dL (7-18); BUN/Creat Ratio 12.8 RATIO (10-20); Calcium,Total 9.5 mg/dL (8.5-10.1); Chloride 104 mmol/L (98-107); Cholesterol 287 mg/dL (200); Creatinine, Serum 0.86 mg/dL (0.55-1.02); EST Glomerular Filtration Rate 71 mL/min (>60); Est Glom Filt Rate - Afr Amer 86 mL/min (>60); Globulin 3.9 g/dL (2.2-4.2); Glucose 89 mg/dL (74-106); High Density Lipoprotein 35 mg/dL; Protein, Total 7.4 g/dL (6.4-8.2); Sodium Level 137 mmol/L (136-145); Thyroid Stim Hormone (TSH) 9.38 uIU/mL (0.358-3.74); Triglycerides 135 mg/dL; Very Low Density Lipoprotein 27 mg/dL (5-40)
[2022-04-29 17:14] LABS: Vitamin D,25 Hydroxy 43.8 ng/mL
== END | disposition home or self-care (01) ==
LOC: BIMLAB 11:40
PROVIDERS: PCP Nurse Practitioner Family; Referring Provider Nurse Practitioner Family; Visit Provider Nurse Practitioner Family
DX: M85.80 Other specified disorders of bone density and structure, unspecified site (principal); E03.9 Hypothyroidism, unspecified; E78.5 Hyperlipidemia, unspecified; Z72.0 Tobacco use; F41.9 Anxiety disorder, unspecified
CPT/HCPCS: 36415; 80053; 80061; 81001; 82306; 84443; 85025

== ENCOUNTER → 2022-06-28 | Outpatient (CLI) | payer MEDICAID, SELFPAY ==
[2022-06-28 15:44] LABS: Bacteria 0 SEEN /hpf (None Seen); Mucous, Urine 0 SEEN /hpf (<or=2+)
[2022-06-28 16:38] LABS: Color, Urine Yellow (Yellow); Glucose, Dipstick Normal (Normal); Ketone-Dipstick Negative (Negative); Leukocyte Esterase-Dipstick 25 /ul (Negative); Nitrite-Dipstick Negative (Negative); Occult Blood-Urine 50 /ul (Negative); Protein-Dipstick 30 mg/dl (Negative); Urine Bilirubin Dipstick Negative (Negative); Urine Clarity Clear (Clear); Urine Urobilinogen Normal (Normal)
[2022-06-28 17:00] LABS: Red Blood Cells-Urine 0-5 SEEN /hpf (0-5); Squamous Epithelial Cells - UA 0-5 SEEN /hpf (5-10); White Blood Cells 0-5 SEEN /hpf (0-5)
== END | disposition home or self-care (01) ==
LOC: LABSPEC 15:18
PROVIDERS: PCP Nurse Practitioner Family; Referring Provider Nurse Practitioner Family; Visit Provider Nurse Practitioner Family
DX: R09.81 Nasal congestion (principal); K52.9 Noninfective gastroenteritis and colitis, unspecified; R30.0 Dysuria
CPT/HCPCS: 87635; 81001; 87086; 87088; U0003; U0005

== ENCOUNTER → 2022-07-29 | Outpatient (CLI) | payer MEDICAID, SELFPAY ==
[2022-07-29 15:50] LABS: Thyroid Stim Hormone (TSH) 0.94 uIU/mL (0.358-3.74)
== END | disposition home or self-care (01) ==
LOC: BIMLAB 12:21
PROVIDERS: PCP Nurse Practitioner Family; Referring Provider Nurse Practitioner Family; Visit Provider Nurse Practitioner Family
DX: E03.9 Hypothyroidism, unspecified (principal)
CPT/HCPCS: 36415; 84443

== ENCOUNTER → 2022-09-09 | Outpatient (CLI) | payer MEDICAID, SELFPAY ==
--- NOTE | 2022-09-09 13:45 | BI_ITS ---
MAMMOGRAPHY - BILATERAL SCREENING REASON FOR EXAM: Female, 61 years old. Routine annual screening examination. PERTINENT HISTORY: Non-contributory. TECHNIQUE: Digital bilateral breast john paul (3D mammographic acquisition) in the CC and MLO projections. 2-D mediolateral oblique (MLO) and craniocaudad (CC) views of both breasts were obtained. CAD: Full Field Digital Mammography with Computer Added Detection was performed. COMPARISON: Comparison is made with prior study April 08, 2021. FINDINGS: Breast Composition: There are scattered areas of fibroglandular density. There are no dominant masses or suspicious calcifications. Stable small benign-appearing bilateral axillary nodes. No other significant abnormalities are identified. There has been no significant change since the prior study. BI/SCRN MAMM (CAD)W/JOHN PAUL BILAT IMPRESSION: Stable bilateral screening mammogram. Yearly follow-up mammogram recommended. (A) ASSESSMENT CATEGORY: BIRADS Category 2: Benign. A letter regarding these results will be sent to the patient by the facility within 30 days. Approximately 10% of breast cancers are not detected by mammography. A normal mammogram should not delay biopsy of a clinically suspicious abnormality. [id number] Electronically Signed: Jonah Castillo MD at 14:39 EDT ,
== END | disposition home or self-care (01) ==
LOC: OPBI 13:45
PROVIDERS: PCP Nurse Practitioner Family; Visit Provider Nurse Practitioner Family
DX: Z12.31 Encounter for screening mammogram for malignant neoplasm of breast (principal)
CPT/HCPCS: 77063; 77067

== ENCOUNTER → 2022-09-12 | Outpatient (CLI) | payer MEDICAID, SELFPAY ==
--- NOTE | 2022-09-12 16:21 | PFTCOMP ---
COMPLETE PULMONARY FUNCTION TEST INTERPRETATION Brief HPI: Patient is a 61-year-old female, currently under the care of Marc Wheeler, who presents to [facility] for complete pulmonary function tests secondary to diagnosis of dyspnea. Respiratory therapist reports good effort and reproducible results. Interpretation: Forced expiration spirometry shows a mild large airways obstructive ventilatory defect with an FEV1 of 89% predicted. There is a significant bronchodilator response in FEV1 by strict ATS criteria. Spirograms are of good quality and plateau slowly, indicating slowly emptying areas of the lungs. The respiratory flow volume loop shows decreased expiratory flow rates at high lung volumes consistent with small airways obstruction. Lung volumes by body plethysmography show a decreased total lung capacity at 4.25 L, 80% predicted. All other lung volumes are reduced symmetrically. Diffusion capacity by carbon monoxide is normal at 85% predicted. The airway resistance is normal. No previous pulmonary function tests were available for review. Impression: Partially reversible mild mixed ventilatory defect with preserved diffusion capacity
== END | disposition home or self-care (01) ==
LOC: PSN 06:58
PROVIDERS: PCP Nurse Practitioner Family; Referring Provider Nurse Practitioner Family; Visit Provider Nurse Practitioner Family
DX: R06.00 Dyspnea, unspecified (principal)
CPT/HCPCS: 94060; 94726; 94729

== ENCOUNTER → 2022-11-15 | Outpatient (CLI) | payer MEDICAID, SELFPAY ==
--- NOTE | 2022-11-15 16:06 | CT_ITS ---
EXAM: CT CHEST WITHOUT INTRAVENOUS CONTRAST CLINICAL INDICATION: Lung cancer screening -- 38 pk yr hx;current smoker;asymptomatic TECHNIQUE: Helically acquired images were obtained of the chest without intravenous contrast. This CT exam was performed using one or more of the following dose reduction techniques: automated exposure control, adjustment of the mA and/or kV according to patient size, and/or use of iterative reconstruction technique. COMPARISON: 05/18/2021 FINDINGS: LUNGS AND PLEURAL SPACES: Minimal subsegmental atelectasis in the lung bases. No mass. No pleural effusion or thickening. No pneumothorax. HEART: Unremarkable. Heart size is normal. No pericardial effusion. No significant coronary artery calcifications. MEDIASTINUM: Unremarkable. No mediastinal or hilar adenopathy. Esophagus is unremarkable. No hiatal hernia. THYROID: Unremarkable. No thyroid lesions. BONES/JOINTS: Degenerative changes of the spine. No suspicious lytic or blastic abnormality. VASCULATURE: Unremarkable. Thoracic aorta is non-dilated. 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 CT/Low Dose CT Lung Screening IMPRESSION: No pulmonary nodules or masses identified. Lung-RADS score: 1 - Negative. Recommend continued annual screening with a low-dose CT (LDCT) in 12 months. Electronically Signed: Jose Luis Johnson MD at 2:28 EDT ,
== END | disposition home or self-care (01) ==
LOC: CT 16:05
PROVIDERS: PCP Nurse Practitioner Family; Referring Provider Nurse Practitioner Family; Visit Provider Nurse Practitioner Family
DX: Z87.891 Personal history of nicotine dependence (principal)
CPT/HCPCS: 71271

== ENCOUNTER → 2022-12-08 | Outpatient (CLI) | payer MEDICAID, SELFPAY ==
[2022-12-08 16:34] LABS: Absolute Lymphocyte Count 2.11 X10^3/uL (0.83-4.51); Absolute Neutrophil Count 2.5 X10^3/uL (2.0-7.7); Basophil# 0.06 X10^3/uL; Basophil% 1.1 % (0-1); Eosinophil# 0.12 X10^3/uL; Eosinophils% 2.2 % (0-5); Hematocrit 36.5 % (37-47); Lymphocyte # 2.11 X10^3/ul (0.83-4.51); Lymphocyte % 39.1 % (19-41); Mean Corp Hgb Conc 32.9 g/dL (32-36); Mean Corpuscular Hgb 30.1 pg (27.0-32.0); Mean Corpuscular Volume 91.5 fL (81-99); Mean Platelet Vol. 11.6 fl (6.2-12.0); Monocyte# 0.54 X10^3/uL; NRBC Flagged by Analyzer 0 % (0-5); Neutrophil # 2.54 X10^3/uL (2.7-7.7); Platelet Count 219 K/mm3 (150-450); RBC Distribution Width CV 11.9 % (11.6-14.6); Red Blood Count 3.99 M/mm3 (4.2-5.4); White Blood Count 5.4 K/mm3 (4.4-11.0)
[2022-12-08 16:57] LABS: AST(SGOT) 21 U/L (15-37); Alanine Aminotransfer ALT/SGPT 26 U/L (13-56); Albumin, Serum 3.3 g/dL (3.2-5.0); Alkaline Phosphatase 92 U/L (45-117); Anion Gap 5 (5-15); BUN 15 mg/dL (7-18); BUN/Creat Ratio 16.4 RATIO (10-20); Calcium,Total 9.2 mg/dL (8.5-10.1); Chloride 107 mmol/L (98-107); Cholesterol 243 mg/dL (200); Creatinine, Serum 0.92 mg/dL (0.55-1.02); EST Glomerular Filtration Rate 66 mL/min (>60); Est Glom Filt Rate - Afr Amer 80 mL/min (>60); Globulin 3.4 g/dL (2.2-4.2); Glucose 119 mg/dL (74-106); High Density Lipoprotein 39 mg/dL; Potassium 3.9 mmol/L (3.5-5.1); Protein, Total 6.7 g/dL (6.4-8.2); Sodium Level 140 mmol/L (136-145); Thyroid Stim Hormone (TSH) 2.81 uIU/mL (0.358-3.74); Triglycerides 275 mg/dL; Very Low Density Lipoprotein 55 mg/dL (5-40)
== END | disposition home or self-care (01) ==
LOC: BIMLAB 15:58
PROVIDERS: PCP Nurse Practitioner Family; Referring Provider Nurse Practitioner Family; Visit Provider Nurse Practitioner Family
DX: E03.9 Hypothyroidism, unspecified (principal); E78.5 Hyperlipidemia, unspecified; Z72.0 Tobacco use
CPT/HCPCS: 36415; 80053; 80061; 84443; 85025

== ENCOUNTER → 2023-10-13 | Outpatient (CLI) | payer OTHER, SELFPAY ==
--- NOTE | 2023-10-13 14:20 | RAD_ITS ---
STUDY: X-RAY - LUMBAR SPINE REASON FOR EXAM: Female, 63 years old. LOW BACK PAIN TECHNIQUE: 2 view(s) of the lumbar spine were obtained. COMPARISON: None FINDINGS: Normal lumbar lordosis. There is a mild dextroscoliosis of the lumbar spine. There is a normal alignment of the vertebrae in the lateral view. There is multilevel endplate spondylosis of the lumbar vertebrae. Mild disc space narrowing. There is no demonstrated fracture. The soft tissue structures are unremarkable. RAD/Lumbar Spine 2 or 3 Views IMPRESSION: Mild degenerative changes with a mild dextroscoliosis, no demonstrated fracture or suspicious osseous lesion Electronically Signed: Mina Brink MD at 15:21 EDT ,
== END | disposition home or self-care (01) ==
LOC: RAD 14:19
PROVIDERS: PCP Nurse Practitioner Family; Referring Provider Nurse Practitioner Family; Visit Provider Nurse Practitioner Family
DX: M54.50 Low back pain, unspecified (principal)
CPT/HCPCS: 72100

== ENCOUNTER → 2023-12-13 | Outpatient (CLI) | payer OTHER, SELFPAY ==
[2023-12-13 12:39] LABS: Cholesterol 157 mg/dL (200); High Density Lipoprotein 51 mg/dL; Thyroid Stim Hormone (TSH) 3.42 uIU/mL (0.358-3.74); Triglycerides 97 mg/dL; Very Low Density Lipoprotein 19 mg/dL (5-40)
== END | disposition home or self-care (01) ==
LOC: VSLAB 09:03
PROVIDERS: PCP Nurse Practitioner Family; Visit Provider Nurse Practitioner Family
DX: E78.5 Hyperlipidemia, unspecified (principal); E03.9 Hypothyroidism, unspecified
CPT/HCPCS: 36415; 80061; 84443

== ENCOUNTER → 2024-04-25 | Outpatient (CLI) | payer OTHER, SELFPAY ==
[2024-04-25 13:02] LABS: Absolute Lymphocyte Count 1.81 X10^3/uL (0.83-4.51); Absolute Neutrophil Count 3.2 X10^3/uL (2.0-7.7); Basophil# 0.07 X10^3/uL; Basophil% 1.2 % (0-1); Eosinophil# 0.21 X10^3/uL; Eosinophils% 3.6 % (0-5); Hematocrit 35.4 % (37-47); Hemoglobin 11.5 g/dL (12.0-15.0); Lymphocyte # 1.81 X10^3/ul (0.83-4.51); Lymphocyte % 30.9 % (19-41); Mean Corp Hgb Conc 32.5 g/dL (32-36); Mean Corpuscular Hgb 29.3 pg (27.0-32.0); Mean Corpuscular Volume 90.3 fL (81-99); Monocyte# 0.53 X10^3/uL; Monocyte% 9.1 % (0-10); NRBC Flagged by Analyzer 0 % (0-5); Neutrophil # 3.21 X10^3/uL (2.7-7.7); Neutrophil % 54.9 % (47-70); Platelet Count 284 K/mm3 (150-450); RBC Distribution Width CV 11.8 % (11.6-14.6); RBC Distribution Width SD 38.6 fl (35.1-43.9); Red Blood Count 3.92 M/mm3 (4.2-5.4); White Blood Count 5.9 K/mm3 (4.4-11.0)
[2024-04-25 13:17] LABS: Vitamin B12 1249 pg/mL (211-911); Vitamin D,25 Hydroxy 47.8 ng/mL
[2024-04-25 13:24] LABS: AST(SGOT) 16 U/L (15-37); Alanine Aminotransfer ALT/SGPT 25 U/L (13-56); Albumin, Serum 3.6 g/dL (3.2-5.0); Alkaline Phosphatase 84 U/L (45-117); Anion Gap 8 (5-15); BUN 11 mg/dL (7-18); BUN/Creat Ratio 11.5 RATIO (10-20); Calcium,Total 9.7 mg/dL (8.5-10.1); Chloride 101 mmol/L (98-107); Cholesterol 133 mg/dL (200); Creatinine, Serum 0.95 mg/dL (0.55-1.02); EST Glomerular Filtration Rate 63 mL/min (>60); Est Glom Filt Rate - Afr Amer 76 mL/min (>60); Globulin 3.7 g/dL (2.2-4.2); Glucose 131 mg/dL (74-106); High Density Lipoprotein 47 mg/dL; Potassium 4.1 mmol/L (3.5-5.1); Protein, Total 7.3 g/dL (6.4-8.2); Sodium Level 135 mmol/L (136-145); Triglycerides 199 mg/dL; Very Low Density Lipoprotein 40 mg/dL (5-40)
== END | disposition home or self-care (01) ==
LOC: VSLAB 11:48
PROVIDERS: PCP Nurse Practitioner Family; Visit Provider Nurse Practitioner Family
DX: F32.A Depression, unspecified (principal)
CPT/HCPCS: 36415; 80053; 80061; 82306; 82607; 84443; 85025

== ENCOUNTER → 2024-05-01 | Outpatient (CLI) | payer OTHER, SELFPAY ==
[2024-05-01 18:08] LABS: Ferritin 53 ng/mL (8-252); Iron 58 ug/dL (50-170); Iron Binding Capacity,Total 445 ug/dL (250-450)
== END | disposition home or self-care (01) ==
LOC: VSLAB 14:38
PROVIDERS: PCP Nurse Practitioner Family; Visit Provider Nurse Practitioner Family
DX: D64.9 Anemia, unspecified (principal)
CPT/HCPCS: 36415; 82728; 82746; 83540; 83550

== ENCOUNTER → 2024-05-07 | Outpatient (CLI) | payer OTHER, SELFPAY ==
[2024-05-15 09:09] LABS: Age Gdln ACOG Testing 30-65 (.); HPV APTIMA, High Risk Negative (Negative)
[2024-05-17 13:32] LABS: HPV Reflexed? YES, CHARGE PATIENT
== END | disposition home or self-care (01) ==
LOC: LABSPEC 15:41
PROVIDERS: PCP Nurse Practitioner Family; Visit Provider Nurse Practitioner Family
DX: Z12.4 Encounter for screening for malignant neoplasm of cervix (principal)
CPT/HCPCS: 87624; 88175; G0145

== ENCOUNTER 2025-02-04 10:34 | Outpatient (CLI) | payer MEDICAID, SELFPAY ==
--- NOTE | 2025-02-04 11:03 | BD_ITS ---
PROCEDURE: DEXA BONE DENSITY STUDY 02/04/2025 REASON FOR EXAM: F, age 64 y/o . Postmenopausal. TECHNIQUE: DEXA BONE DENSITY STUDY COMPARISON: Prior study dated April 08, 2021. FINDINGS: BMD and T-SCORES Lumbar spine: 0.829 g/cm2, T-score -2.0 Levels: L1 through L4 Change from prior: Improvement of 0.1%. Left femoral neck: 0.748 g/cm2, T-score -0.9 Femoral neck comparison data not recommended for monitoring change. Left total hip: 0.899 g/cm2, T-score -0.4 Change from prior: Improvement of 4.8%. Right femoral neck: 0.733 g/cm2, T-score -1.0 Femoral neck comparison data not recommended for monitoring change. Right total hip: 0.852 g/cm2, T-score -0.7 Change from prior: Improvement of 0.8%. The World Health Organization has defined the following categories based on bone density: Normal bone density: T-score equal to or greater than -1.0 Osteopenia: T-score between -1.0 and -2.5 Osteoporosis: T-score equal to or less than -2.5 FRAX (or Comparable) Fracture Risk Assessment: 10 Year Probability of Fracture: Major Osteoporotic Fracture: 5% Hip Fracture: 10% (Note: FRAX is not to be reported in setting of normal range bone density, osteoporosis on DEXA, known history of osteoporosis, prior osteoporotic hip or vertebral fracture, or for any patient undergoing pharmacological treatment for bone loss.) The National Osteoporosis Foundation (NOF) recommends pharmacological treatment for patients with a FRAX 10-year risk of 3% or higher for a hip fracture, or 20% or higher for a major osteoporotic fracture, to prevent osteoporosis and reduce fracture risk. The patient does meet the pharmacological treatment recommendations for prevention of osteoporosis. BD/Dexa Bone Density Study IMPRESSION: OSTEOPENIA. Recommend follow-up as clinically warranted. Reading Location: [id number]
== END 2025-02-04 23:59 | disposition home or self-care (01) ==
PROVIDERS: PCP Nurse Practitioner Family
DX: Z13.820 Encounter for screening for osteoporosis (principal)
CPT/HCPCS: 77080